=== PATIENT | male | born 1985 | race Caucasian/White ===

== ENCOUNTER 2021-04-06 19:34 | Emergency (ER) | payer BC, MEDICAID ==
[~2021-04-06] VITALS: Ht 182.9 cm; Wt 77.3 kg
[~2021-04-06 19:34] MED LIST: ARIP2TAB5 PO; MORPHINE PO; VENL-190 PO; VILA10TA PO
[2021-04-06 20:13] VITALS: BP 132/84
[2021-04-06] MEDS ORDERED: LIDOcaine 1% w/epiNEPHrine 1:200,000 30ml vial IJ ONE (22:10)
[2021-04-06] MEDS ORDERED: bacitracin 15gm ointment TP ONE (22:10)
[2021-04-06] MEDS ORDERED: LIDOcaine 1% W/epiNEPHrine 1:200,000 10ml vial IJ ONE (22:10)
== END 2021-04-06 23:33 | disposition home or self-care (01) ==
LOC: ER 19:35
DX: S61.512A Laceration without foreign body of left wrist, initial encounter (principal); W45.8XXA Other foreign body or object entering through skin, initial encounter; Y93.89 Activity, other specified; Y92.89 Other specified places as the place of occurrence of the external cause; Y99.8 Other external cause status; Z88.0 Allergy status to penicillin; Z88.2 Allergy status to sulfonamides; Z79.899 Other long term (current) drug therapy
CPT/HCPCS: 12001; 99282